=== PATIENT | male | born 1960 | race Caucasian/White ===

== ENCOUNTER 2018-05-07 11:35 | Emergency (ER) | payer OTHER ==
[2018-05-07] MEDS ORDERED: Ketorolac 30 MG/ML SDV IVPUSH ONE (12:04)
[2018-05-07] MEDS ORDERED: Sodium Chloride 0.9% 10 ML Syringe FLUSH PRN (12:04)
[2018-05-07] MEDS ORDERED: Sodium Chloride 0.9% 2.5 ML Syringe FLUSH PRN (12:04)
--- NOTE | 2018-05-07 12:09 | EDM.PDOC ---
ED HPI GENERAL MEDICAL PROBLEM - General Chief Complaint: Abdominal Pain Stated Complaint: PAIN IN LOWER STOMACH Time Seen by Provider: 05/07/18 11:40 - History of Present Illness INITIAL COMMENTS - FREE TEXT/NARRATIVE: HISTORY AND PHYSICAL: History of present illness: The patient is a 57-year-old male with a history of diverticulitis at least 3-4 times in the past, the first time requiring admission to the hospital due to microperforation, who presents with 2 days of left lower quadrant pain that feels like diverticulitis. The patient says his last flareup was in the fall and he went to urgent care and they treated him with antibiotics without doing any imaging or blood work and it cleared the symptoms up. The patient says that he has not been drinking as much water as usual and is sometimes will cause a flareup. He's had no abdominal surgery in the past but has had appendicitis which was treated with antibiotics when he was a child. The patient says he has not seen a solar system designer or been scoped recently. The patient says the pain is dull achy with occasional sharp moments but there is no associated diarrhea, black or bloody stool, nausea vomiting fevers .. He has felt run down and had some malaise and did have some chills. He has no upper abdominal pain and has been eating and drinking normally. Did not take anything specifically for the pain. The patient does have a primary care with Dr. Eli at [facility] Review of systems: As per history of present illness and below otherwise all systems reviewed and negative. Past medical history: As per history of present illness and as reviewed below otherwise noncontributory. Surgical history: As per history of present illness and as reviewed below otherwise noncontributory. Social history: No reported history of drug or alcohol abuse. Family history: As per history of present illness and as reviewed below otherwise noncontributory. Physical exam: General: Well-developed well-nourished man who is nontoxic and vital signs are reviewed by me HEENT: Atraumatic, normocephalic, negative for conjunctival pallor or scleral icterus, mucous membranes moist, throat clear, neck supple, nontender, trachea midline. Lungs: Clear to auscultation, breath sounds equal bilaterally, chest nontender. Heart: S1S2, regular rate and rhythm no overt murmurs Abdomen: Soft, nondistended, with mild tenderness on palpation in the left lower quadrant and suprapubic areas without rebound or guarding. Bowel sounds are slightly hypoactive Negative for masses or hepatosplenomegaly. Negative for costovertebral tenderness. Pelvis: Stable nontender. Genitourinary: Deferred. Rectal: Deferred. Extremities: Atraumatic, full range of motion without defects or deficits Neurovascular unremarkable. Neuro: Awake, alert, oriented. Cranial nerves II through XII unremarkable. Cerebellum unremarkable. Motor and sensory unremarkable throughout. Exam nonfocal. Diagnostics: CBC CMP UA CT scans the abdomen and pelvis Therapeutics: IV, Toradol Patient is aware of all testing results and declines pain meds for home. We will give him Cipro and Flagyl and I've talked to him about the remainder of the CT scan findings and to work on improving his diet. Impression: Left lower quadrant pain/mild sigmoid diverticulitis Definitive disposition and diagnosis as appropriate pending reevaluation and review of above. Left Lower Abdomen Pain Score (Numeric/FACES): 3 - Related Data Allergies Allergy/AdvReac Type Severity Reaction Status Date / Time No Known Allergies Allergy Verified 05/07/18 11:51 Home Meds: Home Meds . [No Known Home Meds] 05/07/18 [History] Past Medical History - Past Health History Medical/Surgical History: Denies Medical/Surgical History - Past Surgical History HEENT Surgical History: Reports: Oral Surgery Social & Family History - Family History Family Medical History: Noncontributory - Tobacco Use Smoking Status *Q: Never Smoker - Recreational Drug Use Recreational Drug Use: No ED ROS GENERAL - Review of Systems Review Of Systems: ROS reveals no pertinent complaints other than HPI. ED EXAM, GENERAL - Physical Exam Exam: See Below (See dictation) Course - Vital Signs Last Recorded V/S: Last Vital Signs Temp 35.8 C 05/07/18 11:49 Pulse 86 05/07/18 14:32 Resp 18 05/07/18 11:49 BP 111/71 05/07/18 14:32 Pulse Ox 96 05/07/18 14:32 - Orders/Labs/Meds Orders: Active Orders 24 hr Category Date Time Status Sodium Chloride 0.9% [Saline Flush] Med 05/07/18 12:04 Active 10 ml FLUSH ASDIRECTED PRN Sodium Chloride 0.9% [Saline Flush] Med 05/07/18 12:04 Active 2.5 ml FLUSH ASDIRECTED PRN Saline Lock Insert [OM.PC] Stat Oth 05/07/18 12:04 Ordered Medication Orders Sodium Chloride (Saline Flush) 10 ml FLUSH ASDIRECTED PRN PRN Reason: Keep Vein Open Last Admin: 05/07/18 12:16 Dose: 10 ml Sodium Chloride (Saline Flush) 2.5 ml FLUSH ASDIRECTED PRN PRN Reason: Keep Vein Open Last Admin: 05/07/18 12:16 Dose: 2.5 ml Labs: Laboratory Tests 05/07/18 05/07/18 05/07/18 Range/Units 12:05 12:05 12:15 WBC 7.50 (4.0-11.0) K/uL RBC 4.78 (4.50-5.90) M/uL Hgb 14.4 (13.0-17.0) g/dL Hct 42.2 (38.0-50.0) % MCV 88.3 (80.0-98.0) fL MCH 30.1 (27.0-32.0) pg MCHC 34.1 (31.0-37.0) g/dL RDW Std Deviation 43.6 (28.0-62.0) fl RDW Coeff of Rojelio 14 (11.0-15.0) % Plt Count 218 (150-400) K/uL MPV 9.40 (7.40-12.00) fL Neut % (Auto) 82.0 H (48.0-80.0) % Lymph % (Auto) 8.8 L (16.0-40.0) % [place] % (Auto) 8.8 (0.0-15.0) % Eos % (Auto) 0.3 (0.0-7.0) % Baso % (Auto) 0.1 (0.0-1.5) % Neut # (Auto) 6.2 H (1.4-5.7) K/uL Lymph # (Auto) 0.7 (0.6-2.4) K/uL [place] # (Auto) 0.7 (0.0-0.8) K/uL Eos # (Auto) 0.0 (0.0-0.7) K/uL Baso # (Auto) 0.0 (0.0-0.1) K/uL Nucleated RBC % 0.0 /100WBC Nucleated RBCs # 0 K/uL Sodium 138 (136-148) mmol/L Potassium 3.8 (3.5-5.1) mmol/L Chloride 102 (98-107) mmol/L Carbon Dioxide 21.9 (21.0-32.0) mmol/L BUN 17 (7.0-18.0) mg/dL Creatinine 1.0 (0.8-1.3) mg/dL Est Cr Clr Drug Dosing 82.13 mL/min Estimated GFR (MDRD) > 60.0 ml/min Glucose 136 H (74-106) mg/dL Calcium 9.6 (8.5-10.1) mg/dL Total Bilirubin 1.0 (0.2-1.0) mg/dL AST 20 (15-37) IU/L ALT 37 (14-63) IU/L Alkaline Phosphatase 50 (46-116) U/L Total Protein 8.1 (6.4-8.2) g/dL Albumin 3.7 (3.4-5.0) g/dL Globulin 4.4 H (2.6-4.0) g/dL Albumin/Globulin Ratio 0.8 L (0.9-1.6) Urine Color YELLOW Urine Appearance CLEAR Urine pH 6.0 (5.0-8.0) Ur Specific [place] >= 1.030 (1.001-1.035) Urine Protein 30 H (NEGATIVE) mg/dL Urine Glucose (UA) NEGATIVE (NEGATIVE) mg/dL Urine Ketones 15 H (NEGATIVE) mg/dL Urine Occult Blood TRACE-INTACT H (NEGATIVE) Urine Nitrite NEGATIVE (NEGATIVE) Urine Bilirubin SMALL H (NEGATIVE) Urine Ictotest NEGATIVE Urine Urobilinogen 0.2 (<2.0) EU/dL Ur Leukocyte Esterase NEGATIVE (NEGATIVE) Urine RBC 0-3 (0-2/HPF) Urine WBC 1-3 (0-5/HPF) Ur Epithelial Cells FEW (NONE-FEW) Urine Bacteria FEW (NEGATIVE) Meds: Medications Generic Name Dose Route Start Last Admin Trade Name Freq PRN Reason Stop Dose Admin Sodium Chloride 10 ml 05/07/18 12:04 05/07/18 12:16 Saline Flush FLUSH 10 ml ASDIRECTED PRN Administration Keep Vein Open Sodium Chloride 2.5 ml 05/07/18 12:04 05/07/18 12:16 Saline Flush FLUSH 2.5 ml ASDIRECTED PRN Administration Keep Vein Open Discontinued Medications Generic Name Dose Route Start Last Admin Trade Name Codeyq PRN Reason Stop Dose Admin Sodium Chloride 1,000 mls @ 999 mls/hr 05/07/18 13:00 05/07/18 13:21 Normal Saline IV 05/07/18 14:00 999 mls/hr STAT ONE Administration Iopamidol 100 ml 05/07/18 14:06 05/07/18 14:06 Isovue Multipack-370 (76%) IVPUSH 05/07/18 14:07 100 ml ONETIME STA Administration Ketorolac Tromethamine 30 mg 05/07/18 12:04 05/07/18 12:16 Toradol IVPUSH 05/07/18 12:05 30 mg ONETIME ONE Administration Departure - Departure Time of Disposition: 14:59 Disposition: Home, Self-Care 01 Condition: Good Clinical Impression: Diverticulitis large intestine Qualifiers: Diverticulitis bleeding: without bleeding Diverticulitis complication: without perforation or abscess Qualified Code(s): K57.32 - Diverticulitis of large intestine without perforation or abscess without bleeding - Discharge Information Referrals: PCP,Unknown [Primary Care Provider] - Forms: ED Department Discharge Additional Instructions: The following information is given to patients seen in the emergency department who are being discharged to home. This information is to outline your options for follow-up care. We provide all patients seen in our emergency department with a follow-up referral. The need for follow-up, as well as the timing and circumstances, are variable depending upon the specifics of your emergency department visit. If you don't have a primary care physician on staff, we will provide you with a referral. We always advise you to contact your personal physician following an emergency department visit to inform them of the circumstance of the visit and for follow-up with them and/or the need for any referrals to a consulting specialist. The emergency department will also refer you to a specialist when appropriate. This referral assures that you have the opportunity for followup care with a specialist. All of these measure are taken in an effort to provide you with optimal care, which includes your followup. Under all circumstances we always encourage you to contact your private physician who remains a resource for coordinating your care. When calling for followup care, please make the office aware that this follow-up is from your recent emergency room visit. If for any reason you are refused follow-up, please contact the [facility] emergency department at and ask to speak to the emergency department charge nurse. [facility] Primary care- Internal Medicine and Family [address] [address] Push hydration and try to eat a diet high in fiber. Use antibiotics as directed until they're finished. Call and schedule follow-up with your provider or one of ours at the conclusion of your treatment for reevaluation and further care and return to ER as needed and as discussed. Use [id number] medications for pain as you choose - My Orders Last 24 Hours: My Active Orders 05/07/18 12:04 Sodium Chloride 0.9% [Saline Flush] 10 ml FLUSH ASDIRECTED PRN Sodium Chloride 0.9% [Saline Flush] 2.5 ml FLUSH ASDIRECTED PRN Saline Lock Insert [OM.PC] Stat - Assessment/Plan Last 24 Hours: My Active Orders 05/07/18 12:04 Sodium Chloride 0.9% [Saline Flush] 10 ml FLUSH ASDIRECTED PRN Sodium Chloride 0.9% [Saline Flush] 2.5 ml FLUSH ASDIRECTED PRN Saline Lock Insert [OM.PC] Stat
[2018-05-07] MEDS ORDERED: Sodium Chloride 0.9% 1,000 ML IV ONE (13:00)
[2018-05-07 13:50] LABS: CHLORIDE,CL 102 mmol/L (98-107); SODIUM,NA 138 mmol/L (136-148)
[2018-05-07] MEDS ORDERED: Iopamidol 755 MG/ML 500 ML Multipack Bottle IVPUSH STA (14:06)
--- NOTE | 2018-05-07 14:47 | CT ---
INDICATION: Abdominal pain. Pain with urination. COMPARISON: None. TECHNIQUE: 100 mL Isovue 370 IV contrast with portal venous imaging lung bases to proximal femurs. FINDINGS: Mild low attenuation of liver parenchyma diffusely. Scattered small benign cysts of each kidney. No nephrolithiasis. Normal appendix. Hazy pericolonic inflammatory attenuation around the distal descending colon with low-attenuation wall thickening over a relatively short segment. Diffuse diverticulosis distal left colon. No mass. No dilatation or inflammation of small bowel. IMPRESSION: Sigmoid diverticulitis. Hepatic steatosis. Please note that all CT scans at this facility use dose modulation, iterative reconstruction, and/or weight-based dosing when appropriate to reduce radiation dose to as low as reasonably achievable. Dictated by Juan Wade MD @ May 07 2018 2:42PM Signed by Dr. Juan Wade @ May 07 2018 2:46PM
== END 2018-05-07 15:11 | disposition home or self-care (01) ==
LOC: MW.ED 11:35
DX: K57.32 Diverticulitis of large intestine without perforation or abscess without bleeding (principal)
CPT/HCPCS: 36415; 74177; 80053; 81001; 85025; 96361; 96374; 99284; J1885; J7040; Q9967

== ENCOUNTER 2018-09-11 12:46 | Emergency (ER) | payer OTHER ==
[2018-09-11] MEDS ORDERED: Sodium Chloride 0.9% 1,000 ML IV ONE (12:51)
[2018-09-11] MEDS ORDERED: Ondansetron 4 MG/2 ML SDV IVPUSH ONE ×2 (13:05→14:43)
--- NOTE | 2018-09-11 13:08 | EDM.PDOC ---
ED HPI GENERAL MEDICAL PROBLEM - General Chief Complaint: Abdominal Pain Stated Complaint: ABDOMINAL PAIN, POST COLONOSCOPY Time Seen by Provider: 09/11/18 12:47 Source of Information: Reports: Patient History Limitations: Reports: No Limitations - History of Present Illness INITIAL COMMENTS - FREE TEXT/NARRATIVE: HISTORY AND PHYSICAL: History of present illness: Patient is a 58-year-old male presents to the ED today with concern of lower abdominal pain following a colonoscopy 3-4 days ago. Patient states he has diverticulosis and what she has had frequent bouts of diverticulitis. Patient states he had the colonoscopy to prepare for surgery at the end of October to have the area of his colon resected with the diverticulosis. Patient states starting yesterday he began to have right lower abdominal pain. Patient states he had called the surgeon who had done the surgery and they said to come to the ED to rule out potential postop complications. Patient states he also feels bloated. Patient states the symptoms are similar but slightly different than his symptoms when he has diverticulitis. Patient states he's never had a bloating feeling with the diverticulitis. Patient last bowel movement was earlier today and was normal for him. Patient denies taking anything for his symptoms. Patient denies any other symptoms at this time or any other health history. Patient denies fever, chills, chest pain, shortness of breath, or cough. Denies headache, neck stiff ness, change in vision, syncope, or near syncope. Denies nausea, vomiting, diarrhea, constipation, or dysuria. Has not noted any blood in urine or stool. Patient has been eating and drinking appropriately. Review of systems: As per history of present illness and below otherwise all systems reviewed and negative. Past medical history: As per history of present illness and as reviewed below otherwise noncontributory. Surgical history: As per history of present illness and as reviewed below otherwise noncontributory. Social history: See social history for further information Family history: As per history of present illness and as reviewed below otherwise noncontributory. Physical exam: General: Patient is alert, oriented, and in no acute distress. Patient sitting comfortably on exam table. HEENT: Atraumatic, normocephalic, pupils equal and reactive bilaterally, negative for conjunctival pallor or scleral icterus, mucous membranes moist, TMs normal bilaterally, throat clear, neck supple, nontender, trachea midline. No drooling or trismus noted. No meningeal signs. No hot potato voice noted. Lungs: Clear to auscultation, breath sounds equal bilaterally, chest nontender. Heart: S1S2, regular rate and rhythm without overt murmur Abdomen: Soft, nondistended. Moderate pain to palpation of the right and lower abdomen without guarding or rebound. Negative for masses or hepatosplenomegaly. Negative for costovertebral tenderness. Pelvis: Stable nontender. Genitourinary: Deferred. Rectal: Deferred. Skin: Intact, warm, dry. No lesions or rashes noted. Extremities: Atraumatic, negative for cords or calf pain. Neurovascular unremarkable. Neuro: Awake, alert, oriented. Cranial nerves II through XII unremarkable. Cerebellum unremarkable. Motor and sensory unremarkable throughout. Exam nonfocal. Notes: Dr. Pete verbally involved in patient care. Discussed the importance of follow-up with primary care provider / general surgeon as already scheduled. Voices understanding and is agreeable to plan of care. Denies any further questions or concerns at this time. Diagnostics: CBC, CMP, UA, lipase, EKG, abdominal pelvic CT Therapeutics: Saline, Zofran, Morphine Prescription: Metronidazole, Cipro, (declines narcotic medication script) Impression: Sigmoid diverticulitis, uncomplicated Plan: 1. Take medication as prescribed. You can alternate ibuprofen and Tylenol as directed for pain and discomfort. 2. Follow-up with your primary care provider / general surgeon as discussed and as scheduled. Return to the ED as needed and as discussed. Definitive disposition and diagnosis as appropriate pending reevaluation and review of above. lower abd pain Pain Score (Numeric/FACES): 4 - Related Data Allergies Allergy/AdvReac Type Severity Reaction Status Date / Time No Known Allergies Allergy Verified 05/07/18 11:51 Home Meds: Home Meds . [No Known Home Meds] 05/07/18 [History] Past Medical History - Past Health History Medical/Surgical History: Denies Medical/Surgical History - Past Surgical History HEENT Surgical History: Reports: Oral Surgery Social & Family History - Family History Family Medical History: Noncontributory ED ROS GENERAL - Review of Systems Review Of Systems: ROS reveals no pertinent complaints other than HPI. ED EXAM, GI/ABD - Physical Exam Exam: See Below (See dictation) Course - Vital Signs Last Recorded V/S: Last Vital Signs Temp 36.3 C 09/11/18 12:59 Pulse 77 09/11/18 12:59 Resp 18 09/11/18 12:59 BP 121/42 L 09/11/18 12:59 Pulse Ox 96 09/11/18 12:59 - Orders/Labs/Meds Orders: Active Orders 24 hr Category Date Time Status EKG Documentation Completion [RC] STAT Care 09/11/18 12:52 Active CULTURE STOOL + CAMPY+SHIGATOX [RM] Stat Lab 09/11/18 13:56 Results OVA & PARASITES BY IMMUNOASSAY [MREF] Stat Lab 09/11/18 13:56 Received Labs: Laboratory Tests 09/11/18 09/11/18 09/11/18 Range/Units 12:50 13:18 13:18 WBC 10.66 (4.0-11.0) K/uL RBC 4.65 (4.50-5.90) M/uL Hgb 14.0 (13.0-17.0) g/dL Hct 40.9 (38.0-50.0) % MCV 88.0 (80.0-98.0) fL MCH 30.1 (27.0-32.0) pg MCHC 34.2 (31.0-37.0) g/dL RDW Std Deviation 41.5 (28.0-62.0) fl RDW Coeff of Rojelio 13 (11.0-15.0) % Plt Count 271 (150-400) K/uL MPV 9.50 (7.40-12.00) fL Neut % (Auto) 81.5 H (48.0-80.0) % Lymph % (Auto) 8.7 L (16.0-40.0) % [place] % (Auto) 9.2 (0.0-15.0) % Eos % (Auto) 0.5 (0.0-7.0) % Baso % (Auto) 0.1 (0.0-1.5) % Neut # (Auto) 8.7 H (1.4-5.7) K/uL Lymph # (Auto) 0.9 (0.6-2.4) K/uL [place] # (Auto) 1.0 H (0.0-0.8) K/uL Eos # (Auto) 0.1 (0.0-0.7) K/uL Baso # (Auto) 0.0 (0.0-0.1) K/uL Nucleated RBC % 0.0 /100WBC Nucleated RBCs # 0 K/uL Sodium 137 (136-148) mmol/L Potassium 3.7 (3.5-5.1) mmol/L Chloride 101 (98-107) mmol/L Carbon Dioxide 25.1 (21.0-32.0) mmol/L BUN 14 (7.0-18.0) mg/dL Creatinine 0.8 (0.8-1.3) mg/dL Est Cr Clr Drug Dosing 101.39 mL/min Estimated GFR (MDRD) > 60.0 ml/min Glucose 119 H (74-106) mg/dL Calcium 9.1 (8.5-10.1) mg/dL Total Bilirubin 1.0 (0.2-1.0) mg/dL AST 20 (15-37) IU/L ALT 43 (14-63) IU/L Alkaline Phosphatase 58 (46-116) U/L Total Protein 7.7 (6.4-8.2) g/dL Albumin 3.8 (3.4-5.0) g/dL Globulin 3.9 (2.6-4.0) g/dL Albumin/Globulin Ratio 1.0 (0.9-1.6) Lipase 100 (73-393) U/L Urine Color YELLOW Urine Appearance CLEAR Urine pH 6.0 (5.0-8.0) Ur Specific [place] 1.020 (1.001-1.035) Urine Protein NEGATIVE (NEGATIVE) mg/dL Urine Glucose (UA) NEGATIVE (NEGATIVE) mg/dL Urine Ketones NEGATIVE (NEGATIVE) mg/dL Urine Occult Blood NEGATIVE (NEGATIVE) Urine Nitrite NEGATIVE (NEGATIVE) Urine Bilirubin NEGATIVE (NEGATIVE) Urine Urobilinogen 0.2 (<2.0) EU/dL Ur Leukocyte Esterase NEGATIVE (NEGATIVE) Meds: Medications Discontinued Medications Generic Name Dose Route Start Last Admin Trade Name Freq PRN Reason Stop Dose Admin Sodium Chloride 1,000 mls @ 999 mls/hr 09/11/18 12:51 09/11/18 13:13 Normal Saline IV 09/11/18 13:51 999 mls/hr STAT ONE Administration Iopamidol 100 ml 09/11/18 14:47 09/11/18 14:48 Isovue Multipack-370 (76%) IVPUSH 09/11/18 14:48 100 ml ONETIME ONE Administration Morphine Sulfate 2 mg 09/11/18 13:54 09/11/18 14:05 Morphine IVPUSH 09/11/18 13:55 2 mg ONETIME ONE Administration Ondansetron HCl 4 mg 09/11/18 13:05 09/11/18 13:13 Zofran IVPUSH 09/11/18 13:06 4 mg ONETIME ONE Administration Ondansetron HCl 4 mg 09/11/18 14:43 09/11/18 14:53 Zofran IVPUSH 09/11/18 14:44 Not Given ONETIME ONE Departure - Departure Time of Disposition: 15:43 Disposition: Home, Self-Care 01 Clinical Impression: Sigmoid diverticulitis - Discharge Information Instructions: Diverticulitis, [id number] Referrals: Theodore Eli MD [Primary Care Provider] - Forms: ED Department Discharge Additional Instructions: The following information is given to patients seen in the emergency department who are being discharged to home. This information is to outline your options for follow-up care. We provide all patients seen in our emergency department with a follow-up referral. The need for follow-up, as well as the timing and circumstances, are variable depending upon the specifics of your emergency department visit. If you don't have a primary care physician on staff, we will provide you with a referral. We always advise you to contact your personal physician following an emergency department visit to inform them of the circumstance of the visit and for follow-up with them and/or the need for any referrals to a consulting specialist. The emergency department will also refer you to a specialist when appropriate. This referral assures that you have the opportunity for follow-up care with a specialist. All of these measure are taken in an effort to provide you with optimal care, which includes your follow-up. Under all circumstances we always encourage you to contact your private physician who remains a resource for coordinating your care. When calling for follow-up care, please make the office aware that this follow-up is from your recent emergency room visit. If for any reason you are refused follow-up, please contact the [facility] Emergency Department at and asked to speak to the emergency department charge nurse. JENNY [facility] Primary Care [address] [place] [address] [facility] [address] [place] [address] [facility] Professional [facility] [address] [facility], [address] [place] [address] 1. Take medication as prescribed. You can alternate ibuprofen and Tylenol as directed for pain and discomfort. 2. Follow-up with your primary care provider / general surgeon as discussed and as scheduled. Return to the ED as needed and as discussed. - My Orders Last 24 Hours: My Active Orders 09/11/18 12:52 EKG Documentation Completion [RC] STAT 09/11/18 13:56 CULTURE STOOL + CAMPY+SHIGATOX [RM] Stat OVA & PARASITES BY IMMUNOASSAY [MREF] Stat - Assessment/Plan Last 24 Hours: My Active Orders 09/11/18 12:52 EKG Documentation Completion [RC] STAT 09/11/18 13:56 CULTURE STOOL + CAMPY+SHIGATOX [RM] Stat OVA & PARASITES BY IMMUNOASSAY [MREF] Stat
[2018-09-11 13:53] LABS: CHLORIDE,CL 101 mmol/L (98-107); SODIUM,NA 137 mmol/L (136-148)
[2018-09-11] MEDS ORDERED: Morphine 2 MG/ML Syringe IVPUSH ONE (13:54)
[2018-09-11] MEDS ORDERED: Iopamidol 755 MG/ML 500 ML Multipack Bottle IVPUSH ONE (14:47)
--- NOTE | 2018-09-11 15:27 | CT ---
INDICATION: Lower abdominal pain. TECHNIQUE: Volumetric CT acquisition of the abdomen pelvis following administration of 100 mL Isovue-370 intravenous contrast. Multiplanar reconstruction. Findings : The lung bases are clear. The liver and spleen are normal in size and without focal abnormality. The gallbladder is present. No dilatation of biliary system. Pancreas and adrenal glands are normal. Kidneys normal in size shape and position. Both kidneys are functioning and display normal enhancement. Bilateral subcortical renal cysts. Ureters normal in course and caliber. Abdominal aorta normal in caliber. No para-aortic or retrocrural lymphadenopathy. Normal bowel gas pattern with retained fluid in the stomach. Fluid-filled nondilated loops of small bowel in the lower abdomen are a nonspecific finding. Examination is significant for sigmoid diverticulitis. There is thickening of the bowel wall inflammatory change in the adjacent fat. No free air, free fluid, or abscess. The appendix is normal. The urinary bladder has a smooth contour. Fat planes surrounding the bladder, rectum, prostate are maintained. Degenerative disc changes at L4-L5. IMPRESSION: 1. Sigmoid diverticulitis. No free fluid, free air, or abscess. 2. Bilateral simple renal cysts. 3. Degenerative disc changes L4-L5 Please note that all CT scans at this facility use dose modulation, iterative reconstruction, and/or weight-based dosing when appropriate to reduce radiation dose to as low as reasonably achievable. Dictated by Shea Hernandez MD @ Sep 11 2018 3:19PM Signed by Dr. Shea Hernandez @ Sep 11 2018 3:26PM
== END 2018-09-11 15:50 | disposition home or self-care (01) ==
LOC: MW.ED 12:46
DX: K57.32 Diverticulitis of large intestine without perforation or abscess without bleeding (principal)
CPT/HCPCS: 74177; 80053; 81003; 83690; 85025; 87046; 87324; 87328; 87329; 87899; 93005; 96361; 96374; 96375; 99284; J2270; J7040; Q9967; J2405